=== PATIENT | male | born 1970 | race Caucasian/White ===

== ENCOUNTER 2018-02-17 13:09 | Emergency (ER) | payer MEDICAID ==
[~2018-02-17] VITALS: Ht 175.3 cm; Wt 70.0 kg
[2018-02-17] MEDS ORDERED: SODIUM CHLORIDE 0.9% 1,000 ML IV ONE ×2 (13:28→20:22)
[2018-02-17] MEDS ORDERED: LORAZEPAM 2MG/ML CPJ IM ONE (13:30)
[2018-02-17] MEDS ORDERED: FAMOTIDINE 20MG/2ML VIAL IV ONE (13:30)
[2018-02-17] MEDS ORDERED: OLANZAPINE 10 MG/VIAL IM ONE (13:30)
[2018-02-17 14:22] LABS: BASOPHILS % 0.6 % (0.0-2.0); EOSINOPHILS % 1.3 % (0.0-5.0); HEMATOCRIT. 38.9 % (42.0-52.0); HEMOGLOBIN. 13.3 g/dL (14.0-18.0); LYMPHOCYTES % 22.5 % (20.0-50.0); MEAN CORPUSCULAR HEMOGLOBIN 30.7 pg (28.0-32.0); MEAN CORPUSCULAR VOLUME 89.8 fL (80.0-94.0); MEAN PLATELET VOLUME 6.7 fl (7.4-10.4); MONOCYTES % 6.5 % (2.0-8.0); NEUTROPHILS % 69.1 % (40.0-76.0); PLATELET 249 x1000/uL (130-400); RED BLOOD CELL COUNT 4.33 mill/uL (4.7-6.1); RED CELL DISTRIBUTION WIDTH 15.1 % (11.6-14.6)
[2018-02-17 14:30] LABS: CHLORIDE 106 mEq/L (98-107)
[2018-02-17 14:36] LABS: ETHANOL BLOOD 259 mg/dL
[2018-02-18 00:42] LABS: CLARITY URINE CLEAR (CLEAR); COLOR URINE YELLOW (YELLOW); KETONES URINE TRACE (NEGATIVE); LEUKOCYTE ESTERASE URINE NEGATIVE (NEGATIVE); NITRITE URINE NEGATIVE (NEGATIVE); OCCULT BLOOD URINE NEGATIVE (NEGATIVE); PH URINE 5.5 (4.5-8.0); PROTEIN URINE NEGATIVE (NEGATIVE); UROBILINOGEN URINE 0.2 E.U./dL (0.2-1.0)
[2018-02-18 01:03] LABS: *AMPHETAMINES SCREEN URINE NEGATIVE (NEGATIVE); *BARBITURATES SCREEN URINE NEGATIVE (NEGATIVE); *BENZODIAZEPINES SCREEN URINE NEGATIVE (NEGATIVE); *COCAINE SCREEN URINE NEGATIVE (NEGATIVE)
[2018-02-18 01:04] LABS: CANNABINOID URINE SCREEN PRESUMTIVE POSITIVE (NEGATIVE); METHADONE URINE SCREEN NEGATIVE (NEGATIVE); OPIATES URINE SCREEN NEGATIVE (NEGATIVE); PHENCYCLIDINE URINE SCREEN NEGATIVE (NEGATIVE)
[2018-02-18] MEDS ORDERED: IBUPROFEN 600MG TABLET PO ONE (02:00)
[2018-02-18 10:11] VITALS: BP 127/63
== END 2018-02-18 10:40 | disposition home or self-care (01) ==
LOC: ER 14:05
DX: T51.0X1A Toxic effect of ethanol, accidental (unintentional), initial encounter (principal); R45.851 Suicidal ideations; G92 Toxic encephalopathy; F12.90 Cannabis use, unspecified, uncomplicated
CPT/HCPCS: 36415; 80053; 80305; 80307; 80329; 81003; 85025; 96372; 99284; G0482; J2060; J3490; J7030

== ENCOUNTER 2020-02-29 05:29 | Inpatient (IN) | payer MEDICAID, OTHER ==
[~2020-02-29] VITALS: Ht 167.6 cm; Wt 61.7 kg
[2020-02-29] MEDS ORDERED: FOLIC ACID 1 MG, THIAMINE HCL 100 MG, MVI, ADULT NO.1 10 ML in DEXTROSE 5% WATER 1,000 ML IV ONE ×4 (06:15)
[2020-02-29 06:24] LABS: HEMATOCRIT. 42.8 % (42.0-52.0); HEMOGLOBIN. 14.8 g/dL (14.0-18.0); LYMPHOCYTES % 7.1 % (20.0-50.0); MEAN CORPUSCULAR HEMOGLOBIN 30.2 pg (28.0-32.0); MEAN PLATELET VOLUME 7.9 fl (7.4-10.4); MONOCYTES % 5.7 % (2.0-8.0); NEUTROPHILS % 86.2 % (40.0-76.0); PLATELET 143 x1000/uL (130-400); RED BLOOD CELL COUNT 4.92 mill/uL (4.7-6.1); RED CELL DISTRIBUTION WIDTH 14.8 % (11.6-14.6)
[2020-02-29 06:29] LABS: CHLORIDE 97 mEq/L (98-107)
[2020-02-29 06:33] LABS: ETHANOL BLOOD < 10 mg/dL
[2020-02-29 06:51] LABS: CREATINE KINASE 558 IU/L (39-308)
[2020-02-29 06:52] LABS: CREATINE KINASE MB FRACTION 9.1 ng/mL (0.5-3.6)
[2020-02-29] MEDS ORDERED: LORAZEPAM 2MG/ML CPJ IV ONE ×2 (07:00→08:15)
[2020-02-29] MEDS ORDERED: MAGNESIUM 2 G PREMIX 50 ML IV ONE (09:45)
[2020-02-29] MEDS ORDERED: KCL 20MEQ/100ML PREMIX 100 ML IV ONE (09:45)
[2020-02-29] MEDS ORDERED: IPRATROPIUM/ALBUTEROL 0.5-3(2.5)MG/3ML NEB NEB PRN (10:15)
[2020-02-29] MEDS ORDERED: NA PHOS,M-B/NA PHOS,DI-BA ENEMA 118ML PR PRN (10:15)
[2020-02-29] MEDS ORDERED: MAGNESIUM/ALUMINUM HYDROXIDE/SIMETHICONE 30ML UDC PO PRN (10:15)
[2020-02-29] MEDS ORDERED: GUAIFENESIN 200MG/10ML SUGAR FREE UDC PO PRN (10:15)
[2020-02-29] MEDS ORDERED: LORAZEPAM 2MG/ML CPJ IV PRN (10:15)
[2020-02-29] MEDS ORDERED: CLONIDINE 0.1MG TABLET PO PRN (10:15)
[2020-02-29 10:35] LABS: CHLORIDE 98 mEq/L (98-107)
[2020-02-29] MEDS ORDERED: AZITHROMYCIN 500 MG in DEXT 5% WATER 250 ML IV SCH (12:00)
[2020-02-29] MEDS ORDERED: DEXT 5%/0.45% NACL KCL 10MEQ/L 1,000 ML IV SCH (12:00)
[2020-02-29] MEDS: ENOXAPARIN 40MG/0.4ML SYR SUBCUT SCH (13:00)
[2020-02-29 16:02] LABS: CLARITY URINE CLEAR (CLEAR); COLOR URINE YELLOW (YELLOW); KETONES URINE NEGATIVE (NEGATIVE); LEUKOCYTE ESTERASE URINE NEGATIVE (NEGATIVE); NITRITE URINE NEGATIVE (NEGATIVE); OCCULT BLOOD URINE NEGATIVE (NEGATIVE); PROTEIN URINE NEGATIVE (NEGATIVE); SPECIFIC GRAVITY URINE 1.013 (1.005-1.030)
[2020-02-29 16:13] LABS: *AMPHETAMINES SCREEN URINE NEGATIVE (NEGATIVE); *BARBITURATES SCREEN URINE NEGATIVE (NEGATIVE); *BENZODIAZEPINES SCREEN URINE NEGATIVE (NEGATIVE); *COCAINE SCREEN URINE NEGATIVE (NEGATIVE); METHADONE URINE SCREEN NEGATIVE (NEGATIVE); OPIATES URINE SCREEN NEGATIVE (NEGATIVE)
[2020-02-29 16:14] LABS: CANNABINOID URINE SCREEN NEGATIVE (NEGATIVE); PHENCYCLIDINE URINE SCREEN NEGATIVE (NEGATIVE)
[2020-02-29] MEDS: DEXT 5%/0.45% NACL KCL 10MEQ/L 1,000 ML IV SCH (22:11)
[2020-02-29] MEDS: MORPHINE SULFATE 2 MG/ML CPJ (NOT FOR IM USE) IV PRN (23:50)
[2020-02-29] MEDS: ONDANSETRON HCL 4MG/2ML INJ IV PRN (23:50)
[2020-03-01] VITALS (11 sets, daily range): BP systolic 107–171; BP diastolic 68–94
[2020-03-01] MEDS: MORPHINE SULFATE 2 MG/ML CPJ (NOT FOR IM USE) IV PRN ×5 (03:57→23:12)
[2020-03-01 07:01] LABS: BASOPHILS % 0.3 % (0.0-2.0); EOSINOPHILS % 0.1 % (0.0-5.0); HEMATOCRIT. 37.6 % (42.0-52.0); LYMPHOCYTES % 21.9 % (20.0-50.0); MEAN CORPUSCULAR HEMOGLOBIN 30.6 pg (28.0-32.0); MEAN CORPUSCULAR VOLUME 88.3 fL (80.0-94.0); MEAN PLATELET VOLUME 8.2 fl (7.4-10.4); MONOCYTES % 7.4 % (2.0-8.0); NEUTROPHILS % 70.3 % (40.0-76.0); PLATELET 106 x1000/uL (130-400); RED BLOOD CELL COUNT 4.25 mill/uL (4.7-6.1); RED CELL DISTRIBUTION WIDTH 14.9 % (11.6-14.6)
[2020-03-01 07:15] LABS: CHLORIDE 100 mEq/L (98-107)
[2020-03-01] MEDS: ONDANSETRON HCL 4MG/2ML INJ IV PRN ×3 (07:22→23:06)
[2020-03-01 07:28] LABS: HDL CHOLESTEROL 95 mg/dL (40-59)
[2020-03-01 07:31] LABS: T4 FREE 1.49 ng/dL (0.76-1.46)
[2020-03-01 07:32] LABS: LDL CHOLESTEROL 52 mg/dL (5-100)
[2020-03-01] MEDS: DEXT 5%/0.45% NACL KCL 10MEQ/L 1,000 ML IV SCH (07:50)
[2020-03-01] MEDS: ENOXAPARIN 40MG/0.4ML SYR SUBCUT SCH (09:00)
[2020-03-01] MEDS: ASPIRIN 81MG EC TABLET PO SCH (09:55)
[2020-03-01] MEDS: METOCLOPRAMIDE HCL 10MG/2ML VIAL IV SCH ×3 (11:46→23:06)
[2020-03-01] MEDS ORDERED: POTASSIUM CHLORIDE INJ 60 MEQ in SODIUM CHLORIDE 0.9% 500 ML IV NR (12:00)
[2020-03-01] MEDS ORDERED: AZITHROMYCIN 500 MG in DEXT 5% WATER 250 ML IV SCH (12:00)
[2020-03-01] MEDS ORDERED: LORAZEPAM 2MG/ML CPJ IM PRN (14:45)
[2020-03-01] MEDS: FOLIC ACID 1 MG, THIAMINE HCL 100 MG, MVI, ADULT NO.1 10 ML in DEXTROSE 5% WATER 1,000 ML IV SCH ×4 (16:58)
[2020-03-01] MEDS: DIPHENHYDRAMINE 50MG/ML VIAL IV PRN (23:06)
[2020-03-02] VITALS (10 sets, daily range): BP systolic 116–144; BP diastolic 78–93
[2020-03-02] MEDS: FOLIC ACID 1 MG, THIAMINE HCL 100 MG, MVI, ADULT NO.1 10 ML in DEXTROSE 5% WATER 1,000 ML IV SCH ×12 (03:00→21:20)
[2020-03-02] MEDS: LORAZEPAM 2MG/ML CPJ IV PRN ×3 (03:36→21:20)
[2020-03-02] MEDS: ACETAMINOPHEN 325MG TABLET PO PRN (03:44)
[2020-03-02] MEDS: METOCLOPRAMIDE HCL 10MG/2ML VIAL IV SCH ×4 (06:00→23:16)
[2020-03-02] MEDS: ONDANSETRON HCL 4MG/2ML INJ IV PRN ×2 (08:11→21:20)
[2020-03-02] MEDS: ASPIRIN 81MG EC TABLET PO SCH (08:11)
[2020-03-02] MEDS: MORPHINE SULFATE 2 MG/ML CPJ (NOT FOR IM USE) IV PRN ×4 (08:16→21:19)
[2020-03-02] MEDS: ENOXAPARIN 40MG/0.4ML SYR SUBCUT SCH (09:00)
[2020-03-02] MEDS: DOCUSATE SODIUM 100MG CAPSULE PO PRN (12:33)
[2020-03-02] MEDS: DEXT 5%/0.45% NACL KCL 10MEQ/L 1,000 ML IV SCH ×2 (13:25→23:16)
[2020-03-02] MEDS: AZITHROMYCIN 500 MG in DEXT 5% WATER 250 ML IV SCH (15:14)
[2020-03-02] MEDS: DIPHENHYDRAMINE 50MG/ML VIAL IV PRN (21:19)
[2020-03-02] MEDS: HYDROCODONE/ACETAMINOPHEN 5/325MG TABLET PO PRN (23:16)
[2020-03-03] VITALS (8 sets, daily range): BP systolic 109–152; BP diastolic 67–92
[2020-03-03] MEDS: MORPHINE SULFATE 2 MG/ML CPJ (NOT FOR IM USE) IV PRN ×3 (01:25→12:46)
[2020-03-03] MEDS: LORAZEPAM 2MG/ML CPJ IV PRN (01:25)
[2020-03-03] MEDS: ONDANSETRON HCL 4MG/2ML INJ IV PRN (05:05)
[2020-03-03] MEDS: DIPHENHYDRAMINE 50MG/ML VIAL IV PRN (05:06)
[2020-03-03] MEDS: METOCLOPRAMIDE HCL 10MG/2ML VIAL IV SCH ×2 (05:06→11:22)
[2020-03-03] MEDS: HYDROCODONE/ACETAMINOPHEN 5/325MG TABLET PO PRN (05:07)
[2020-03-03] MEDS: DOCUSATE SODIUM 100MG CAPSULE PO PRN (05:08)
[2020-03-03 06:08] LABS: EOSINOPHILS % 3.3 % (0.0-5.0); HEMATOCRIT. 39.6 % (42.0-52.0); HEMOGLOBIN. 13.8 g/dL (14.0-18.0); MEAN CORPUSCULAR HEMOGLOBIN 30.6 pg (28.0-32.0); MEAN CORPUSCULAR VOLUME 87.9 fL (80.0-94.0); MEAN PLATELET VOLUME 8.2 fl (7.4-10.4); MONOCYTES % 14.1 % (2.0-8.0); NEUTROPHILS % 50.6 % (40.0-76.0); PLATELET 126 x1000/uL (130-400); RED CELL DISTRIBUTION WIDTH 14.9 % (11.6-14.6)
[2020-03-03 06:31] LABS: CHLORIDE 99 mEq/L (98-107)
[2020-03-03] MEDS: ASPIRIN 81MG EC TABLET PO SCH (08:19)
[2020-03-03] MEDS: ENOXAPARIN 40MG/0.4ML SYR SUBCUT SCH (08:20)
[2020-03-03] MEDS ORDERED: POTASSIUM CHLORIDE 20MEQ TABLET SR PO SCH (09:00)
[2020-03-03] MEDS ORDERED: FOLIC ACID 1 MG, THIAMINE HCL 100 MG, MVI, ADULT NO.1 10 ML in DEXTROSE 5% WATER 1,000 ML IV SCH ×4 (10:00)
[2020-03-03] MEDS ORDERED: PANTOPRAZOLE SODIUM 40 MG/VIAL IV SCH (11:15)
[2020-03-03] MEDS: ACETAMINOPHEN 325MG TABLET PO PRN (11:23)
[2020-03-03] MEDS: AZITHROMYCIN 500 MG in DEXT 5% WATER 250 ML IV SCH (13:44)
== END 2020-03-03 16:44 | disposition home or self-care (01) | DRG 241 ==
LOC: ER 05:29 → MICUSO 07:10 → EDBEDREQ 07:12 → EDBEDREQTM 07:12 → 5EST 23:37
PROVIDERS: ADMIT Internal Medicine; ATTEND Internal Medicine
DX: K29.20 Alcoholic gastritis without bleeding (principal); K76.0 Fatty (change of) liver, not elsewhere classified; E86.0 Dehydration; F10.229 Alcohol dependence with intoxication, unspecified; F10.239 Alcohol dependence with withdrawal, unspecified; E87.6 Hypokalemia; I10 Essential (primary) hypertension
CPT/HCPCS: 36415; 71045; 76700; 80048; 80053; 80061; 80305; 80307; 80320; 80329; 81003; 82550; 82553; 82962; 84439; 84443; 84484; 85025; 93005; 96365; 99291; J0456; J1200; J1650; J2060; J2270; J2405; J2765; J3411; J3475; J3480; J3490; J7040; J7060; J7070; G0480

== ENCOUNTER 2021-11-15 14:37 | Emergency (ER) | payer MEDICAID ==
[~2021-11-15] VITALS: Ht 162.6 cm; Wt 71.0 kg
[2021-11-15 15:29] LABS: BASOPHILS % 0.9 % (0.0-2.0); EOSINOPHILS % 2.2 % (0.0-5.0); HEMATOCRIT. 37.3 % (42.0-52.0); HEMOGLOBIN. 12.9 g/dL (14.0-18.0); LYMPHOCYTES % 33.9 % (20.0-50.0); MEAN CORPUSCULAR HEMOGLOBIN 30.7 pg (28.0-32.0); MEAN CORPUSCULAR VOLUME 88.7 fL (80.0-94.0); MEAN PLATELET VOLUME 7.1 fl (7.4-10.4); MONOCYTES % 13.2 % (2.0-8.0); NEUTROPHILS % 49.8 % (40.0-76.0); PLATELET 215 x1000/uL (130-400); RED CELL DISTRIBUTION WIDTH 16.5 % (11.6-14.6)
[2021-11-15 15:42] LABS: CHLORIDE 110 mEq/L (98-107)
[2021-11-15] MEDS ORDERED: SODIUM CHLORIDE 0.9% 1,000 ML IV ONE (16:00)
[2021-11-15 16:06] LABS: CLARITY URINE CLEAR (CLEAR); COLOR URINE DARK YELLOW (YELLOW); KETONES URINE 1+ (NEGATIVE); LEUKOCYTE ESTERASE URINE NEGATIVE (NEGATIVE); NITRITE URINE NEGATIVE (NEGATIVE); OCCULT BLOOD URINE 1+ (NEGATIVE); PROTEIN URINE 1+ (NEGATIVE); SPECIFIC GRAVITY URINE 1.023 (1.005-1.030)
[2021-11-15 16:12] LABS: ETHANOL BLOOD 412 mg/dL
[2021-11-15 16:16] LABS: *AMPHETAMINES SCREEN URINE NEGATIVE (NEGATIVE); *BARBITURATES SCREEN URINE NEGATIVE (NEGATIVE); *BENZODIAZEPINES SCREEN URINE PRESUMTIVE POSITIVE (NEGATIVE); *COCAINE SCREEN URINE NEGATIVE (NEGATIVE)
[2021-11-15 16:17] LABS: CANNABINOID URINE SCREEN NEGATIVE (NEGATIVE); METHADONE URINE SCREEN NEGATIVE (NEGATIVE); OPIATES URINE SCREEN NEGATIVE (NEGATIVE); PHENCYCLIDINE URINE SCREEN NEGATIVE (NEGATIVE)
[2021-11-15 19:20] VITALS: BP 127/81
== END 2021-11-15 19:30 | disposition home or self-care (01) ==
LOC: ER 14:44
DX: F10.239 Alcohol dependence with withdrawal, unspecified (principal); Y90.8 Blood alcohol level of 240 mg/100 ml or more; F12.10 Cannabis abuse, uncomplicated
CPT/HCPCS: 36415; 70450; 71045; 72125; 80053; 80305; 80307; 80320; 80329; 81003; 82140; 83690; 84443; 84484; 85025; 93005; 96360; 96361; 99291; J7030; G0480

== ENCOUNTER 2021-11-29 12:04 | Emergency (ER) | payer MEDICAID ==
[~2021-11-29] VITALS: Ht 175.3 cm; Wt 70.0 kg
[2021-11-29] MEDS ORDERED: IBUPROFEN 600MG TABLET PO ONE (12:45)
[2021-11-29] MEDS ORDERED: HYDROCODONE/ACETAMINOPHEN 5/325MG TABLET PO ONE (14:00)
[2021-11-29] MEDS ORDERED: HYDR-4001 MT (14:01)
[2021-11-29 14:14] VITALS: BP 138/89
== END 2021-11-29 14:15 | disposition home or self-care (01) ==
LOC: ER 12:07
DX: S42.002A Fracture of unspecified part of left clavicle, initial encounter for closed fracture (principal); W18.39XA Other fall on same level, initial encounter; Y93.89 Activity, other specified; Y92.89 Other specified places as the place of occurrence of the external cause; Y99.8 Other external cause status
CPT/HCPCS: 73030; 99283

== ENCOUNTER 2023-08-04 16:38 | Inpatient (IN) | payer MEDICAID ==
[~2023-08-04] VITALS: Ht 167.6 cm; Wt 69.9 kg
[~2023-08-04 16:38] MED LIST: HYDR-4001 MT
[2023-08-04 16:41] VITALS: O2SAT 99
[2023-08-04] MEDS ORDERED: MORPHINE SULFATE 4 MG/ML CPJ (NOT FOR IM USE) IV ONE ×2 (17:45→23:30)
[2023-08-04] MEDS ORDERED: ONDANSETRON HCL 4MG/2ML INJ IV ONE (17:45)
[2023-08-04] MEDS ORDERED: ONDANSETRON HCL 4MG/2ML INJ IM ONE (19:15)
[2023-08-04 20:40] LABS: BASOPHILS % 0.7 % (0.0-2.0); EOSINOPHILS % 2.1 % (0.0-5.0); HEMATOCRIT. 40.5 % (42.0-52.0); HEMOGLOBIN. 13.7 g/dL (14.0-18.0); LYMPHOCYTES % 44.3 % (20.0-50.0); MEAN CORPUSCULAR HEMOGLOBIN 31.1 pg (28.0-32.0); MEAN CORPUSCULAR HGB CONC 33.9 g/dL (31.0-37.0); MEAN CORPUSCULAR VOLUME 91.8 fL (80.0-94.0); MEAN PLATELET VOLUME 7.4 fl (7.4-10.4); MONOCYTES % 7.6 % (2.0-8.0); NEUTROPHILS % 45.3 % (40.0-76.0); PLATELET 281 x1000/uL (130-400); RED BLOOD CELL COUNT 4.41 mill/uL (4.7-6.1); RED CELL DISTRIBUTION WIDTH 14.2 % (11.6-14.6); WHITE BLOOD COUNT 6.3 x1000/uL (4.5-11.0)
[2023-08-04 20:49] LABS: CHLORIDE 115 mEq/L (98-107); INDEX HEMOLYSI 1 (1-3); INDEX ICTERIC 1 (1-4); INDEX LIPEMIC 1 (1-3); POTASSIUM 3.5 mEq/L (3.5-5.1); SODIUM 144 mEq/L (136-145)
[2023-08-04 20:55] LABS: ALANINE AMINOTRANSFERASE 16 IU/L (13-61); ALBUMIN 3.5 g/dL (3.4-5.0); ASPARTATE AMINOTRANSFERASE 15 IU/L (15-37); BILIRUBIN TOTAL 0.2 mg/dL (0.1-1.0); CALCIUM 7.9 mg/dL (8.5-10.1); CARBON DIOXIDE 24 mEq/L (21-32); CREATININE 0.7 mg/dL (0.6-1.3); GLUCOSE 89 mg/dL (70-105); PROTEIN TOTAL 6.8 g/dL (6.0-8.3); UREA NITROGEN BLOOD 11 mg/dL (7-21)
[2023-08-05] MEDS ORDERED: ONDANSETRON HCL 4MG/2ML INJ IV NR ×2 (01:30→04:30)
[2023-08-05] MEDS ORDERED: MORPHINE SULFATE 4 MG/ML CPJ (NOT FOR IM USE) IV NR (01:30)
[2023-08-05] MEDS ORDERED: IOHEXOL-300 100 ML BOTTLE ONE (01:33)
[2023-08-05] MEDS ORDERED: KETOROLAC 30MG/ML VIAL IV NR (04:30)
[2023-08-05 05:15] VITALS: BP 155/86; PULSE 73; RESP 18; TEMP 97.7
[2023-08-05 05:30] VITALS: BP 155/86; PULSE 73; RESP 18; TEMP 97.7
[2023-08-05] MEDS ORDERED: DOCUSATE SODIUM 100MG CAPSULE PO PRN (06:00)
[2023-08-05] MEDS ORDERED: ONDANSETRON HCL 4MG/2ML INJ IV PRN (06:00)
[2023-08-05] MEDS ORDERED: PANTOPRAZOLE SODIUM 40 MG/VIAL IV SCH (06:00)
[2023-08-05] MEDS ORDERED: ACETAMINOPHEN 325MG TABLET PO PRN ×2 (06:00)
[2023-08-05] MEDS ORDERED: MAGNESIUM/ALUMINUM HYDROXIDE/SIMETHICONE 30ML UDC PO PRN (06:00)
[2023-08-05] MEDS ORDERED: IPRATROPIUM/ALBUTEROL 0.5-3(2.5)MG/3ML NEB HHN PRN (06:00)
[2023-08-05] MEDS ORDERED: CLONIDINE 0.1MG TABLET PO PRN (06:00)
[2023-08-05] MEDS ORDERED: KETOROLAC 30MG/ML VIAL IV PRN (06:00)
[2023-08-05] MEDS ORDERED: GUAIFENESIN 200MG/10ML SUGAR FREE UDC PO PRN (06:00)
[2023-08-05 07:03] LABS: CHLORIDE 110 mEq/L (98-107); INDEX HEMOLYSI 1 (1-3); INDEX ICTERIC 1 (1-4); INDEX LIPEMIC 1 (1-3); POTASSIUM 3.4 mEq/L (3.5-5.1); SODIUM 141 mEq/L (136-145)
[2023-08-05 07:06] LABS: INDEX HEMOLYSI 1 (1-3)
[2023-08-05 07:19] LABS: ALANINE AMINOTRANSFERASE 15 IU/L (13-61); ALBUMIN 3.7 g/dL (3.4-5.0); ASPARTATE AMINOTRANSFERASE 14 IU/L (15-37); BILIRUBIN TOTAL 0.6 mg/dL (0.1-1.0); CALCIUM 8.2 mg/dL (8.5-10.1); CARBON DIOXIDE 25 mEq/L (21-32); CHOLESTEROL 139 mg/dL (<200); CREATININE 0.5 mg/dL (0.6-1.3); ETHANOL BLOOD < 10 mg/dL (<10); GLUCOSE 85 mg/dL (70-105); HDL CHOLESTEROL 47 mg/dL (40-59); LDL CHOLESTEROL 87 mg/dL (5-100); PROTEIN TOTAL 6.8 g/dL (6.0-8.3); T4 FREE 1.07 ng/dL (0.76-1.46); TRIGLYCERIDE 138 mg/dL (0-150); UREA NITROGEN BLOOD 12 mg/dL (7-21)
[2023-08-05 07:20] LABS: CREATINE KINASE 55 IU/L (39-308); TROPONIN I HIGH SENSITIVITY 6 ng/L (<78)
[2023-08-05] MEDS ORDERED: MVI, ADULT NO.1 10 ML, FOLIC ACID 1 MG, THIAMINE HCL 100 MG in SODIUM CHLORIDE 0.9% 1,0... IV NR ×4 (08:00)
[2023-08-05 08:04] LABS: BASOPHILS % 0.5 % (0.0-2.0); EOSINOPHILS % 1.3 % (0.0-5.0); HEMATOCRIT. 39.6 % (42.0-52.0); HEMOGLOBIN. 13.6 g/dL (14.0-18.0); MEAN CORPUSCULAR HEMOGLOBIN 31.4 pg (28.0-32.0); MEAN CORPUSCULAR HGB CONC 34.3 g/dL (31.0-37.0); MEAN CORPUSCULAR VOLUME 91.6 fL (80.0-94.0); MEAN PLATELET VOLUME 7.6 fl (7.4-10.4); MONOCYTES % 7.6 % (2.0-8.0); NEUTROPHILS % 65.6 % (40.0-76.0); PLATELET 279 x1000/uL (130-400); RED BLOOD CELL COUNT 4.32 mill/uL (4.7-6.1); RED CELL DISTRIBUTION WIDTH 14.3 % (11.6-14.6)
[2023-08-05 08:07] LABS: INDEX HEMOLYSI 4 (1-3)
[2023-08-05 08:21] LABS: CREATINE KINASE 74 IU/L (39-308); TROPONIN I HIGH SENSITIVITY 6 ng/L (<78)
[2023-08-05] MEDS ORDERED: ENOXAPARIN 40MG/0.4ML SYR SUBCUT SCH (09:00)
[2023-08-05] MEDS ORDERED: HYDROCODONE/ACETAMINOPHEN 5/325MG TABLET PO PRN (09:45)
[2023-08-05] MEDS ORDERED: NALOXONE HCL 0.4MG/ML VIAL IV PRN (10:00)
[2023-08-05] MEDS ORDERED: KCL 20MEQ/100ML PREMIX 100 ML IV NR (10:30)
[2023-08-06] MEDS ORDERED: THIAMINE HCL 100MG TABLET PO SCH (09:00)
[2023-08-06] MEDS ORDERED: FOLIC ACID 1MG TABLET PO SCH (09:00)
== END 2023-08-05 11:10 | disposition left against medical advice (07) | DRG 115 ==
LOC: ER 16:38 → MICUSO 08-05 02:15 → 4WST 08-05 04:56 → 6EST 08-05 07:49
PROVIDERS: ADMIT Hospitalist; ATTEND Hospitalist
DX: S09.90XA Unspecified injury of head, initial encounter (principal); D64.9 Anemia, unspecified; F41.9 Anxiety disorder, unspecified; Z53.29 Procedure and treatment not carried out because of patient's decision for other reasons; F17.210 Nicotine dependence, cigarettes, uncomplicated; E87.6 Hypokalemia; G89.29 Other chronic pain; R10.2 Pelvic and perineal pain; W01.0XXA Fall on same level from slipping, tripping and stumbling without subsequent striking against object, initial encounter; Z79.891 Long term (current) use of opiate analgesic; Z79.899 Other long term (current) drug therapy; Y93.89 Activity, other specified; Y99.8 Other external cause status; Y92.410 Unspecified street and highway as the place of occurrence of the external cause
CPT/HCPCS: 36415; 71045; 71260; 72170; 74177; 80053; 80061; 80320; 82550; 83605; 83735; 84100; 84439; 84443; 84484; 85025; 99285; C9113; J1650; J1885; J2270; J2405; J3411; J3480; J3490; J7030; Q9967; G0480

== ENCOUNTER 2024-04-27 08:36 | Emergency (ER) | payer MEDICAID ==
[~2024-04-27] VITALS: Ht 172.7 cm; Wt 75.0 kg
[2024-04-27 08:46] VITALS: TEMP 98.6; O2SAT 99
[2024-04-27] MEDS ORDERED: GABA-532 MT (10:46)
[2024-04-27] MEDS ORDERED: HYDR-4001 MT (10:48)
[2024-04-27 10:53] VITALS: BP 142/83; PULSE 78; RESP 18
[2024-04-27] MEDS: KETOROLAC 30MG/ML VIAL IM ONE (10:53)
== END 2024-04-27 12:02 | disposition home or self-care (01) ==
LOC: ER 08:36
DX: M25.521 Pain in right elbow (principal); M25.551 Pain in right hip; Z98.890 Other specified postprocedural states; W01.0XXA Fall on same level from slipping, tripping and stumbling without subsequent striking against object, initial encounter; Y93.89 Activity, other specified; Y92.89 Other specified places as the place of occurrence of the external cause; Y99.8 Other external cause status
CPT/HCPCS: 99285; 93971; 73502; 73070; 73090; 96372; J1885

== ENCOUNTER 2024-05-12 07:37 | Emergency (ER) | payer MEDICAID ==
[~2024-05-12] VITALS: Ht 172.7 cm; Wt 69.0 kg
[~2024-05-12 07:37] MED LIST changes: +GABA-532 MT
[2024-05-12 07:46] VITALS: TEMP 98.2; O2SAT 98
[2024-05-12] MEDS: KETOROLAC 15MG/ML VIAL IM ONE (09:30)
[2024-05-12 09:31] VITALS: BP 152/88; PULSE 76; RESP 20
[2024-05-12] MEDS ORDERED: LIDO700A15 TP (09:38)
[2024-05-12] MEDS ORDERED: NAPR-1176 MT (09:38)
== END 2024-05-12 09:39 | disposition home or self-care (01) ==
LOC: ER 07:37
DX: S52.021G Displaced fracture of olecranon process without intraarticular extension of right ulna, subsequent encounter for closed fracture with delayed healing (principal); Z98.890 Other specified postprocedural states; Z79.899 Other long term (current) drug therapy; X58.XXXD Exposure to other specified factors, subsequent encounter; Y90.9 Presence of alcohol in blood, level not specified
CPT/HCPCS: 99283; 73080; 96372; J1885

== ENCOUNTER 2024-08-01 09:09 | Emergency (ER) | payer MEDICAID ==
[~2024-08-01] VITALS: Ht 167.6 cm; Wt 70.3 kg
[~2024-08-01 09:09] MED LIST changes: +LIDO700A15 TP; +NAPR-1176 MT
[2024-08-01 09:12] VITALS: O2SAT 100
[2024-08-01] MEDS: OXYCODONE HCL/ACETAMINOPHEN 5/325MG TABLET PO ONE (10:10)
[2024-08-01] MEDS ORDERED: GABA-290 MT (12:17)
[2024-08-01 12:24] VITALS: BP 116/82; PULSE 74; RESP 16; TEMP 37.05852; O2SAT 100
== END 2024-08-01 12:26 | disposition home or self-care (01) ==
LOC: ER 09:09
DX: R10.2 Pelvic and perineal pain (principal); Z79.899 Other long term (current) drug therapy
CPT/HCPCS: 72131; 72192; 99284

== ENCOUNTER 2024-10-21 04:03 | Emergency (ER) | payer MEDICAID ==
[~2024-10-21] VITALS: Ht 167.6 cm; Wt 70.5 kg
[~2024-10-21 04:03] MED LIST changes: +GABA-1180 MT; +GABA-290 MT; -GABA-532 MT
[2024-10-21 04:53] LABS: CHLORIDE 106 mEq/L (98-107); POTASSIUM 2.9 mEq/L (3.5-5.1); SODIUM 142 mEq/L (136-145)
[2024-10-21] MEDS: MAGNESIUM/ALUMINUM HYDROXIDE/SIMETHICONE 30ML UDC PO ONE (04:53)
[2024-10-21] MEDS: ONDANSETRON HCL 4MG/2ML INJ IV ONE (04:53)
[2024-10-21] MEDS: LORAZEPAM 2MG/ML INJ IV ONE (04:53)
[2024-10-21] MEDS: FAMOTIDINE 20MG TABLET PO ONE (04:53)
[2024-10-21] MEDS: SODIUM CHLORIDE 0.9% 1,000 ML IV ONE (04:53)
[2024-10-21 04:54] LABS: CARBON DIOXIDE 23 mEq/L (21-32)
[2024-10-21 04:57] LABS: INR 0.9; PROTHROMBIN TIME 10.6 sec (9.6-11.0)
[2024-10-21 04:59] LABS: CREATININE 0.8 mg/dL (0.6-1.3); GLUCOSE 98 mg/dL (70-105); UREA NITROGEN BLOOD 13 mg/dL (9-23)
[2024-10-21 05:00] LABS: ETHANOL BLOOD 53 mg/dL (<10)
[2024-10-21 05:01] LABS: AMMONIA 34 uMol/L (<32)
[2024-10-21 05:02] LABS: BASOPHILS % 0.4 % (0.0-2.0); EOSINOPHILS % 0.3 % (0.0-5.0); HEMATOCRIT. 41.3 % (42.0-52.0); HEMOGLOBIN. 13.9 g/dL (14.0-18.0); LYMPHOCYTES % 32.8 % (20.0-50.0); MEAN CORPUSCULAR HEMOGLOBIN 30.2 pg (28.0-32.0); MEAN CORPUSCULAR HGB CONC 33.6 g/dL (31.0-37.0); MEAN CORPUSCULAR VOLUME 89.8 fL (80.0-94.0); MEAN PLATELET VOLUME 6.9 fl (7.4-10.4); MONOCYTES % 8.2 % (2.0-8.0); NEUTROPHILS % 58.3 % (40.0-76.0); PLATELET 520 x1000/uL (130-400); RED CELL DISTRIBUTION WIDTH 14.5 % (11.6-14.6); WHITE BLOOD COUNT 7.5 x1000/uL (4.5-11.0)
[2024-10-21 05:06] LABS: TROPONIN I HIGH SENSITIVITY < 4 ng/L (3.0-53)
[2024-10-21] MEDS: POTASSIUM CHLORIDE 20MEQ TABLET SR PO NR (05:30)
[2024-10-21] MEDS: MULTIVITAMINS,THER W-MINERALS TABLET PO SCH (05:30)
[2024-10-21] MEDS ORDERED: CHLORDIAZEPOXIDE 25MG CAPSULE PO PRN ×2 (05:30)
[2024-10-21] MEDS ORDERED: POTASSIUM CHLORIDE 30 MEQ in DEXT 5%/0.9% NACL 985 ML IV NR (06:30)
[2024-10-21] MEDS: CHLORDIAZEPOXIDE 25MG CAPSULE PO PRN (06:48)
[2024-10-21 08:30] VITALS: BP 125/81; PULSE 95; RESP 10; TEMP 36.83628; O2SAT 95
[2024-10-21] MEDS: ACETAMINOPHEN 500MG TABLET PO ONE (08:44)
[2024-10-21] MEDS ORDERED: VISCOUS LIDOCAINE 2% 15 ML UDC MM NR (09:00)
[2024-10-21] MEDS ORDERED: FOLIC ACID 1MG TABLET PO SCH (09:00)
[2024-10-21] MEDS ORDERED: THIAMINE HCL 100 MG/1 ML 2ML VIAL IM SCH (09:00)
[2024-10-23] MEDS ORDERED: THIAMINE HCL 100MG TABLET PO SCH (09:00)
== END 2024-10-21 08:51 | disposition left against medical advice (07) ==
LOC: ER 04:03 → EDBEDREQ 05:35 → ER 08:51
DX: R56.9 Unspecified convulsions (principal); E87.6 Hypokalemia; F10.939 Alcohol use, unspecified with withdrawal, unspecified; Z98.890 Other specified postprocedural states; Y90.2 Blood alcohol level of 40-59 mg/100 ml
CPT/HCPCS: 80048; 80320; 82140; 83690; 85025; 85610; 86850; 86900; 86901; 84484; 36415; 71045; 70450; 93005; 96361; 96374; 96375; 99291; J2060; J2405; J7030; J3411; J3480; J7042; G0480